=== PATIENT | female | born 1955 | race Caucasian/White ===

== ENCOUNTER 2016-12-03 13:55 | Emergency (ER) | payer OTHER ==
[2016-12-03 15:36] LABS: BASOPHILS 0.1 % (0-2); EOSINOPHILS 0.4 % (0-7); HEMATOCRIT 43.5 % (36.0-48.0); IMMATURE GRANULOCYTES 0.4 % (0-5); MCH 30.8 pg (26.0-34.0); MCHC 34.5 g/dL (31.0-37.0); MCV 89.3 fL (80.0-100.0); MEAN PLATELET VOLUME 10.2 fL (7.4-10.4); NEUTROPHILS 73.1 % (40-80); PLATELET COUNT 415 10x3/uL (130-400); RBC 4.87 10x6/uL (4.00-5.40); RDW 13.2 % (11.5-14.5); WBC 13.5 10x3/uL (4.8-10.8)
[2016-12-03 15:37] LABS: APPEARANCE CLEAR (CLEAR); COLOR YELLOW (YELLOW)
[2016-12-03 15:38] LABS: BILIRUBIN NEGATIVE (NEGATIVE); GLUCOSE NEGATIVE (NEGATIVE); KETONE NEGATIVE (NEGATIVE); NITRITE NEGATIVE (NEGATIVE); PROTEIN NEGATIVE (NEGATIVE); UROBILINOGEN NORMAL (NORMAL)
[2016-12-03 15:41] LABS: BACTERIA FEW /hpf (NONE SEEN); EPITHELIAL CELLS 0-5 /hpf (0-5); WHITE CELLS - URINE 0-5 /hpf (0-5)
[2016-12-03 15:47] LABS: ALBUMIN 3.9 g/dL (3.4-5.0); ANION GAP 12.8 mmol/L (8-16); BILIRUBIN - TOTAL 0.7 mg/dL (0.2-1.3); C-REACTIVE PROTEIN 13.4 mg/dL (0.0-0.9); CALCIUM 10.6 mg/dL (8.5-10.1); CARBON DIOXIDE 29.9 mmol/L (21.0-32.0); CREATININE - SERUM 0.9 mg/dL (0.6-1.3); PROTEIN - SERUM 8.2 g/dL (6.4-8.2)
[2016-12-03 15:49] LABS: POTASSIUM - SERUM 2.7 mmol/L (3.5-5.1)
[2016-12-06 10:18] LABS: ANA REFLEX - DIRECT Negative (Negative)
== END 2016-12-03 17:00 | disposition home or self-care (01) ==
LOC: D.ER 13:55
PROVIDERS: Physician Assistant Medical
DX: M35.3 Polymyalgia rheumatica (principal); E87.1 Hypo-osmolality and hyponatremia; M25.521 Pain in right elbow; M25.511 Pain in right shoulder; M25.552 Pain in left hip; M25.562 Pain in left knee

== ENCOUNTER → 2016-12-28 10:57 | Outpatient (CLI) | payer OTHER | END | disposition home or self-care (01) | LOC: D.US 10:57 | DX: E83.52 Hypercalcemia (principal) ==